=== PATIENT | male | born 1940 | race Caucasian/White ===

== ENCOUNTER 2016-12-30 12:24 | Emergency (ER) | payer MEDICARE, BC ==
--- NOTE | 2016-12-30 13:15 | ERNOTE ---
Lower Extremity HPI - General Lower Extremities Pain: foot: left Time Seen by Provider: 12/30/16 13:04 Source: patient Exam Limitations: no limitations - Immun/Allergies/Home Medications Immunizations: IMMUNIZATION HX Immunizations Up to Date Yes Allergies/Adverse Reactions: Allergies Allergy/AdvReac Type Severity Reaction Status Date / Time morphine Allergy Verified 12/30/16 12:39 Home Medications: HOME MEDICATIONS Aspirin [Aspirin Enteric Coated] 81 mg PO DAILY 12/30/16 [Last Taken Unknown] Levothyroxine Sodium [Synthroid] 50 mcg PO DAILY 12/30/16 [Last Taken Unknown] Polyvinyl Alcohol/Povidone/Pf [Refresh Classic Eye Drops] 1 each OP TID [Last Taken Unknown] Simvastatin [Zocor] 20 mg PO HS 12/30/16 [Last Taken Unknown] Timolol Maleate [Timoptic] 5 ml OP BID 12/30/16 [Last Taken Unknown] - History of Present Illness Narrative: About six days ago patient stepped into a hole and twisted his ankle/foot. He did not fall or sustain any other injuries, he has no pain at rest only with weight bearing especially when getting up, has not taken any pain medications yet, patient points to the lateral proximal foot as pain location Method of Injury: Reports: twisted Associated Symptoms: Denies: unable to bear weight Other Injuries: Reports: none Subsequent Symptoms: Denies: sensory loss Prior Treament: Denies: similar symptoms before Review of Systems - Review of Systems Constitutional: Absent: recent illness, fever ENT: Absent: nose congestion, sore throat Respiratory: Absent: shortness of breath, cough Cardiology: Absent: chest pain Gastrointestinal/Abdominal: Absent: nausea, vomiting, abdominal pain Genitourinary: Present: no symptoms reported Musculoskeletal: Present: See HPI Skin: Absent: rash Neurological: Absent: weakness, numbness - Patient's Past Medical History Patient History - Medical: Hypothyroidism Patient History - Cardiac/Respiratory: Hypertension, Hyperlipidemia Patient History - Cancer: No Hx of Cancer Patient History - Other: None - Social History Living Situations: home Psych History: No pertinent hx Smoking Status: Never smoker Alcohol Use: none Drug Use: none - Immunizations Immunizations Up to Date: Yes Physical Exam - Physical Exam General Appearance: Present: wd/wn, alert, no apparent distress Respiratory: Present: no respiratory distress, normal breath sounds, no accessory muscle use, lungs clear Cardiovascular/Chest: Present: regular rate, rhythm Extremity Exam: Present: normal except - - left ankle edema (chronic per patient ), no echymosis, no tenderness on palpation of neither foot nor ankle, decrased ROM Neurological Exam: Present: alert, oriented, normal mood/affect, no motor/ sensory deficits Skin Exam: Present: normal color, warm/dry ED Progress - Vital Signs Patient's Vital Signs:: I have reviewed the patient's vital signs. Vital Signs: Vital Signs 12/30/16 12/30/16 12:32 12:53 Temperature 37.0 C Pulse Rate 74 60 Respiratory 12 12 Rate Blood Pressure 194/119 171/103 O2 Sat by Pulse 100 97 Oximetry - X-Ray X-Ray #1 X-Ray: foot - no bony injury, DJD Interpretation: Reviewed by me - Progress/Reassessment Chief Complaint: Ankle Injury/ Pain Progress Note-Subjective: 12/30/16 13:39 discussed results with patient, blood pressure elevated, patient denies any headache Departure Clinical Impression: Sprain of foot, left Qualifiers: Encounter type: initial encounter Qualified Code(s): S93.602A - Unspecified sprain of left foot, initial encounter - Departure Disposition: Home self-care Condition: Good Instructions: Foot Sprain Additional Instructions: take tylenol (325mg) two tablets every six hours as needed for pain if the pain does not improve significantly over the next week call the orthopedic office for follow up Referrals: Jaylen Oneill DO [Primary Care Provider] - Antonino Ovalle MD [Staff Physician] -
[2016-12-30] MEDS ORDERED: ACETAMINOPHEN 325 MG TABLET PO ONE (13:37)
[2016-12-30] MEDS ORDERED: ACETAMINOPHEN 325 MG TABLET ONE (13:40)
[2016-12-30 13:45] VITALS: BP 177/86
== END 2016-12-30 13:46 | disposition home or self-care (01) ==
LOC: ER 12:24
DX: S93.602A Unspecified sprain of left foot, initial encounter (principal); E78.5 Hyperlipidemia, unspecified; E03.9 Hypothyroidism, unspecified; I10 Essential (primary) hypertension; W17.2XXA Fall into hole, initial encounter

== ENCOUNTER 2017-03-15 15:46 | Emergency (ER) | payer MEDICARE, BC ==
[2017-03-15 16:21] LABS: Hematocrit 43.6 % (42.0-52.0); Hemoglobin 14.6 gm/dL (13.5-18.0); Mean Corpuscular Hemoglobin 31.5 pg (27-31); Mean Corpuscular Hgb Conc 33.5 g/dl (32-36); Mean Platelet Volume 9.9 fl (6.0-9.5); Neutrophil # 4.8 K/mm3 (1.3-6.0); Neutrophil % 65.9 % (42-75.0); Platelet Count 242 K/mm3 (150-450); Red Blood Count 4.64 M/mm3 (4.7-6.0); Red Cell Distribution Width 13.9 % (11.5-14.0); White Blood Count 7.2 K/mm3 (4.0-10.5)
--- NOTE | 2017-03-15 16:24 | ERNOTE ---
Syncope ER HPI Date of Service: 03/15/17 Stated Complaint: FALL. LT SHOULDER BLADE PAIN Time Seen by Provider: 03/15/17 15:56 Source: patient Exam Limitations: no limitations Immunizations: IMMUNIZATION HX Immunizations Up to Date Yes History of Influenza Vaccine No Hx Pneumococcal Vaccination Yes Allergies/Adverse Reactions: Allergies morphine Allergy (Verified 03/15/17 15:58) Home Medications: HOME MEDICATIONS Levothyroxine Sodium [Synthroid] 50 mcg PO DAILY 12/30/16 [Last Taken Unknown] Simvastatin [Zocor] 20 mg PO HS 12/30/16 [Last Taken Unknown] Timolol Maleate [Timoptic] 5 ml OP BID 12/30/16 [Last Taken Unknown] Docusate Sodium [Stool Softener] 50 mg PO PRN PRN 03/14/17 [Last Taken Unknown] Meclizine HCl 25 mg PO TID PRN 03/14/17 [Last Taken Unknown] Omeprazole [Prilosec] 20 mg PO DAILY 03/14/17 [Last Taken Unknown] Warfarin Sodium [Coumadin] 5 mg PO DAILY 03/14/17 [Last Taken Unknown] - History of Present Illness Narrative: Pt. comes in with c/o L lateral rib pain after he passed out and woke up on the grass after he was raking leaves. Pt. states that he was diagnosed with A fib a couple of weeks ago and was started on coumadin and denies feeling any palpitations but felt weird before passing out. Pt. denies this happenng before to him and states taht he has also had some swelling of his LLE recently and ankle pain as well. Date (Duration): 03/15/17 Time (Timing): 15:00 Prior Episodes: Present: no prior history Symptoms prior to episode: Present: other - "weird feeling" Activity at time of episode: Present: other - raking Character of event: Present: became unresponsive Location of Injury: Present: chest - L lateral chest Current Symptoms: Present: back to normal Prior Treament: Reports: recently seen, treated by physician, other - appointment with tank setter in 2 weeks Review of Systems - Review of Systems Constitutional: Present: no symptoms reported. Absent: recent illness, fever, chills, weakness, fatigue, malaise EYE: Present: no symptoms reported ENT: Present: no symptoms reported Respiratory: Present: no symptoms reported. Absent: shortness of breath, cough , wheezing Cardiology: Present: edema - LLE. Absent: chest pain, palpitations Gastrointestinal/Abdominal: Present: no symptoms reported Genitourinary: Present: no symptoms reported Musculoskeletal: Present: back pain - L lateral post ribs. Absent: joint pain Skin: Present: no symptoms reported. Absent: rash, dryness, lesions, lumps, change in color, change in hair/nails Neurological: Present: other - LOC. Absent: headache, dizziness/light- headedness, numbness, tingling All Other Systems: All systems neg except as marked - Patient's Past Medical History Patient History - Medical: Hypothyroidism Patient History - Cardiac/Respiratory: Atrial Fibrillation, Hypertension, Hyperlipidemia Patient History - Cancer: No Hx of Cancer Patient History - Surgical Procedures: Total Hip Replacement, Orthopedic Patient History - Other: None - Social History Living Situations: home Psych History: No pertinent hx Smoking Status: Never smoker - Immunizations Immunizations Up to Date: Yes Hx Pneumococcal Vaccination: Yes History of Influenza Vaccine: No Physical Exam - Physical Exam General Appearance: Present: wd/wn, alert, no apparent distress Head Exam: Present: normal inspection, no evidence of injury Eye Exam: Normal inspection: bilateral, PERRL: bilateral, EOMI: bilateral Ears, Nose, Throat: Present: normal ENT inspection, normal pharynx Neck: Present: normal inspection, nontender, supple, full range of motion Respiratory: Present: no respiratory distress, normal breath sounds, no accessory muscle use, lungs clear, chest tenderness - LLateral 7th and 8th ribs Cardiovascular/Chest: Present: no murmur, normal peripheral pulses, irregularly irregular Gastrointestinal/Abdominal: Present: normal bowel sounds, nontender, no organomegaly, distended - rounded Back Exam: Present: normal range of motion, no CVA tenderness, no vertebral tenderness, other - L posterior 6th, 7th, and 8th ribs Extremity Exam: Present: normal inspection, non-tender, normal range of motion, extremity edema - LLE +2 Neurological Exam: Present: alert, oriented, normal mood/affect, no motor/ sensory deficits, cashier credit II-XII nml as tested, normal cerebellar test Skin Exam: Present: normal color, warm/dry. Absent: pallor, skin rash ED Progress - Date and Time Seen: Date and Time: 03/15/17 17:[address] Neil and as pt. needs VQ scan emergently he recommends transferring pt. Called [facility] and they state that they are unable to take pt as they do not have VQ scan at this time. Discussed with Dr Morrison at [facility] and he accepts pt. without any order requisitions. - Results and Orders Patient's Lab Results:: I have reviewed the patient's lab results. Results and Orders: Abnormal Lab Results 03/15/17 03/15/17 03/15/17 Range/Units 16:20 16:20 16:20 RBC 4.64 L (4.7-6.0) M/mm3 MCH 31.5 H (27-31) pg MPV 9.9 H (6.0-9.5) fl Immature Gran % (Auto) 0.60 H (0.001-0.429) % Immature Gran # (Auto) 0.04 H (0.000-0.0310) K/mm3 Lymphocytes % 19.7 L (20-51) % Monocytes % 10.2 H (0.0-9) % Lymphocytes # 1.4 L (1.5-3.5) k/mm3 PT 26.8 H (9.0-11.0) Seconds INR (Anticoag Therapy) 2.65 H (0.90-1.10) INR D-Dimer (0.19-0.49) mg/L Anion Gap 14.9 H (6.8-13.8) mmol/L BUN 28 H (6-23) mg/dL Creatinine 1.68 H (0.4-1.4) mg/dL Est GFR (Non-Af Amer) 42 L (60-130) mL/min Random Glucose 147 H (70-110) mg/dL B-Natriuretic Peptide 1245 H (5-650) pg/mL Urine Protein (NEGATIVE) mg/dL Urine Blood (NEGATIVE) /ul Prot Sulfosalicylic Acd (0) mg/dL 03/15/17 03/15/17 Range/Units 16:20 17:01 RBC (4.7-6.0) M/mm3 MCH (27-31) pg MPV (6.0-9.5) fl Immature Gran % (Auto) (0.001-0.429) % Immature Gran # (Auto) (0.000-0.0310) K/mm3 Lymphocytes % (20-51) % Monocytes % (0.0-9) % Lymphocytes # (1.5-3.5) k/mm3 PT (9.0-11.0) Seconds INR (Anticoag Therapy) (0.90-1.10) INR D-Dimer 3.06 H (0.19-0.49) mg/L Anion Gap (6.8-13.8) mmol/L BUN (6-23) mg/dL Creatinine (0.4-1.4) mg/dL Est GFR (Non-Af Amer) (60-130) mL/min Random Glucose (70-110) mg/dL B-Natriuretic Peptide (5-650) pg/mL Urine Protein 100 H (NEGATIVE) mg/dL Urine Blood 25 H (NEGATIVE) /ul Prot Sulfosalicylic Acd 3+ H (0) mg/dL - Vital Signs Patient's Vital Signs:: I have reviewed the patient's vital signs. Vital Signs: Vital Signs 03/15/17 15:53 Temperature 36.5 C Pulse Rate 75 Respiratory 13 Rate Blood Pressure 166/91 O2 Sat by Pulse 95 Oximetry - EKG EKG: atrial fibrillation, other - IVCD EKG read: Reviewed by me EKG Comments: Interp by Dr Neil - X-Ray X-Ray #1 X-Ray: ribs Interpretation: Reviewed by me X-ray Comments: Displaced rib fractures of L 4th, 5th, 6th, 7th, and 8th ribs X-Ray #2 X-Ray: chest Interpretation: Reviewed by me X-ray Comments: No obvious acute cardiopulmonary process - CT/Ultrasound CT/Ultrasound Narrative: CT head without any acute intracranial process - Progress/Reassessment Chief Complaint: Syncopal Episode Progress:: Unchanged Departure Clinical Impression: Elevated d-dimer, Acute renal insufficiency Ribs, multiple fractures Qualifiers: Encounter type: initial encounter Fracture type: closed Laterality: left Qualified Code(s): S22.42XA - Multiple fractures of ribs, left side, initial encounter for closed fracture Syncope Qualifiers: Syncope type: unspecified Qualified Code(s): R55 - Syncope and collapse - Departure Disposition: Other health care facility Condition: Serious Referrals: Jaylen Oneill DO [Primary Care Provider] -
[2017-03-15 16:35] LABS: Prothrombin Time (Patient) 26.8 Seconds (9.0-11.0)
[2017-03-15 16:36] LABS: INR 2.65 INR (0.90-1.10)
[2017-03-15 16:42] LABS: Troponin I Less than 0.017 ng/ml (0.00-0.10)
[2017-03-15 16:45] LABS: ALT 37 U/L (19-67); AST 43 U/L (0-48); Albumin * 3.6 gm/dl (3.4-5.0); Alkaline Phosphatase * 89 U/L (50-170); Anion Gap 14.9 mmol/L (6.8-13.8); BNP * 1245 pg/mL (5-650); BUN/Creatinine Ratio 16.7 (9.0-21.6); Bilirubin, Total 0.6 mg/dL (0.0-1.1); Blood Urea Nitrogen 28 mg/dL (6-23); Carbon Dioxide 28.3 mmol/L (24-32.6); Chloride 102 mmol/L (97-106); Glucose * 147 mg/dL (70-110); Potassium 4.2 mmol/L (3.4-4.6); Sodium 141 mmol/L (132-142); TSH * 2.559 uIU/mL (0.358-3.74)
[2017-03-15 17:07] LABS: Urine Bilirubin Negative (NEGATIVE); Urine Ketone Negative (NEGATIVE); Urine Nitrite Negative (NEGATIVE); Urine Protein 100 mg/dL (NEGATIVE); Urine Specific Gravity 1.025 SP.GR. (1.005-1.030); Urine Urobilinogen Normal (NORMAL)
[2017-03-15 17:11] LABS: Urine Appearance Clear; Urine Blood 25 /ul (NEGATIVE); Urine Color Yellow
[2017-03-15 17:13] LABS: Urine RBC 0-5 /hpf (0-5); Urine WBC None Seen /hpf (0-5)
[2017-03-15 17:14] LABS: Urine Bacteria TRACE; Urine Mucus TRACE
[2017-03-15] MEDS ORDERED: diphenhydrAMINE HCL 50 MG/ML VIAL IV ONE (17:28)
[2017-03-15] MEDS ORDERED: HYDROmorphone HCL 1 MG/ML DISP.SYRIN IV ONE (17:28)
[2017-03-15] MEDS ORDERED: diphenhydrAMINE HCL 50 MG/ML VIAL ONE (17:29)
[2017-03-15] MEDS ORDERED: HYDROmorphone HCL 1 MG/ML DISP.SYRIN ONE (17:29)
[2017-03-15 23:03] VITALS: BP 146/73
== END 2017-03-15 22:55 | disposition short-term general hospital (02) ==
LOC: ER 15:46
DX: S22.42XA Multiple fractures of ribs, left side, initial encounter for closed fracture (principal); R79.89 Other specified abnormal findings of blood chemistry; R55 Syncope and collapse; N28.9 Disorder of kidney and ureter, unspecified; I48.91 Unspecified atrial fibrillation; Z79.01 Long term (current) use of anticoagulants; E78.5 Hyperlipidemia, unspecified; I10 Essential (primary) hypertension; E03.9 Hypothyroidism, unspecified; W18.39XA Other fall on same level, initial encounter; Y93.H2 Activity, gardening and landscaping; Y92.007 Garden or yard of unspecified non-institutional (private) residence as the place of occurrence of the external cause